=== PATIENT | male | born 1970 | race Two or more races ===

== ENCOUNTER 2017-01-22 14:41 | Emergency (ER) | payer OTHER ==
[~2017-01-22] VITALS: Ht 172.7 cm; Wt 86.2 kg
--- NOTE | 2017-01-22 16:31 | Emergency Room Report ---
History of Present Illness General Chief Complaint: Lower Back Pain or Injury Source: Patient Present Illness HPI The patient is a 46 old male presenting for back pain. He states that this is a work-related injury which occurred on 12/14. He states that he was lifting a heavy object and felt pain at the lower back. He was seen at another facility where imaging was done and unremarkable. He states that he was taking some pain medication which helped. He has now run out and pain has returned. It is 8/10 dull ache to the lower back. Does not radiate. Worse with bending over. He denies any other symptoms including nausea, vomiting, fever, chills, abdominal pain, numbness, tingling, urinary incontinence Allergies: Coded Allergies: No Known Allergies (Unverified , 01/22/17) Patient History Past Medical History: see triage record Pertinent Family History: none Reviewed Nursing Documentation: PMH: Agreed, PSxH: Agreed Nursing Documentation-PMH Hx Hypertension: Yes Review of Systems All Other Systems: negative except mentioned in HPI Physical Exam Vital Signs Date Time Temp Pulse Resp B/P (MAP) Pulse Ox O2 Delivery O2 Flow Rate FiO2 01/22/17 15:27 97.9 67 16 137/87 96 Room Air Sp02 EP Interpretation: reviewed, normal General Appearance: no apparent distress, alert, GCS 15, non-toxic Head: normocephalic, atraumatic Eyes: bilateral eye normal inspection, bilateral eye PERRL ENT: hearing grossly normal, normal pharynx, no angioedema, normal voice Neck: full range of motion, supple/symm/no masses Gastrointestinal: normal bowel sounds, non tender, soft, non-distended, no guarding, no rebound Genitourinary: normal inspection, no CVA tenderness Musculoskeletal: gait/station normal, normal range of motion, tender - bilat lumbar paraspinal muscles Neurologic: alert, oriented x3, responsive, motor strength/tone normal, sensory intact, speech normal Psychiatric: judgement/insight normal, memory normal, mood/affect normal, no suicidal/homicidal ideation Skin: normal color, no rash, warm/dry, well hydrated Medical Decision Making PA Attestation Dr. Jansen is my supervising physician. Patient management was discussed with my supervising physician Diagnostic Impression: Primary Impression: Muscle strain ER Course The patient is a 46 old male presenting for back pain. Ddx considered include but not limited to lumbar strain, degenerative disease, epidural abscess, cauda equina syndrome, chronic pain Physical exam: Afebrile. No apparent distress There is tenderness to palpation over bilateral lumbar paraspinal muscles. No midline tenderness or step-offs. Full active range of motion intact Normal gait The patient be discharged home with pain medication. He will followup with his primary doctor and workers compensation. He was told that MRI may be needed if pain continues or worsens Last Vital Signs Date Time Temp Pulse Resp B/P (MAP) Pulse Ox O2 Delivery O2 Flow Rate FiO2 01/22/17 15:27 97.9 67 16 137/87 96 Room Air Status: improved Disposition: HOME, SELF-CARE Condition: Improved Scripts Methocarbamol* (ROBAXIN-750*) 750 Mg Tablet 750 MG PO TID, #21 TAB 0 Refills Prov: RONALDO FRIAS.Alexa 01/22/17 Acetaminophen* (TYLENOL EXTRA STRENGTH*) 500 Mg Tablet 500 MG ORAL Q8H Y for Prn Headache/Temp > 101, #30 TAB 0 Refills Prov: RONALDO FRIAS 01/22/17 RONALDO FRIAS Jan 22, 2017 16:31
[2017-01-22] MEDS ORDERED: TYLENOL EXTRA500 MG ORAL (16:37)
[2017-01-22] MEDS ORDERED: ROBAXIN-750750 MG PO (16:37)
[2017-01-22 16:51] VITALS: BP 150/95
== END 2017-01-22 16:51 | disposition home or self-care (01) ==
LOC: EMR 15:15
DX: S39.012A Strain of muscle, fascia and tendon of lower back, initial encounter (principal); X50.0XXA Overexertion from strenuous movement or load, initial encounter; Y92.59 Other trade areas as the place of occurrence of the external cause; Y99.0 Civilian activity done for income or pay; I10 Essential (primary) hypertension
CPT/HCPCS: 99283

== ENCOUNTER 2017-04-21 07:40 | Day surgery (SDC) | payer OTHER ==
[2017-04-21] VITALS (8 sets, daily range): BP systolic 13–145; BP diastolic 90–99
[~2017-04-21] VITALS: Ht 172.7 cm; Wt 86.2 kg
[~2017-04-21 07:40] MED LIST: LR 1000ml 1,000 ML IVLG SCH; ROBAXIN-750750 MG PO; TYLENOL EXTRA500 MG ORAL
[2017-04-21] MEDS ORDERED: Propofol 200mg/20ml IV ONE (07:41)
[2017-04-21] MEDS ORDERED: LR 1000ml ONE (07:41)
[2017-04-21] MEDS ORDERED: Lidocaine 1% MPF 10mg/ml 5ml ONE (07:41)
[2017-04-21] MEDS ORDERED: Midazolam 2mg/2ml Inj ONE (07:41)
[2017-04-21] MEDS ORDERED: LR 1000ml 1,000 ML IVLG SCH (08:07)
[2017-04-21] MEDS ORDERED: oxyCODONE HCL/Acetaminophen 5/325mg ORAL PRN (08:15)
[2017-04-21] MEDS ORDERED: Hydromorphone 0.5mg/0.5ml inj IVP PRN (08:15)
[2017-04-21] MEDS ORDERED: Ketorolac 30mg Inj IV PRN ×2 (08:15)
[2017-04-21] MEDS ORDERED: Atropine Inj 1mg/10ml Syr IV PRN (08:15)
[2017-04-21] MEDS ORDERED: Midazolam 2mg/2ml Inj IVP PRN (08:15)
[2017-04-21] MEDS ORDERED: Labetalol 5mg/ml 20ml vial IV PRN (08:15)
[2017-04-21] MEDS ORDERED: LORazepam Inj 2mg/ml 1ml IV PRN (08:15)
[2017-04-21] MEDS ORDERED: DiphenhydrAMINE 50mg/ml Inj IVP PRN (08:15)
[2017-04-21] MEDS ORDERED: fentaNYL 100 mcg/2 mL IV PRN (08:15)
[2017-04-21] MEDS ORDERED: Norco 5mg/325mg tab ORAL PRN (08:15)
[2017-04-21] MEDS ORDERED: HYDROcodone/Acetamin 7.5/325 tab ORAL PRN (08:15)
[2017-04-21] MEDS ORDERED: MULTIVITAMINS1 EAC2 ORAL (08:20)
[2017-04-21] MEDS ORDERED: AMLODIPINE BESY10 MG ORAL (08:20)
--- NOTE | 2017-04-21 09:02 | Short Stay Surgery H&P ---
History of Present Illness History of Present Illness Chief Complaint Rectal bleeding and abdominal pains. YASMINE Richardson is a 46 year old male who was admitted on for Abdominal Pain/ rectal bleeding. Patient History Allergies: Coded Allergies: Crab (Verified Allergy, Severe, 04/21/17) hives PAST MEDICAL HISTORY: (1) Hypertension Past Surgeries: Social History: Medication History Scheduled Amlodipine Besylate* (Amlodipine Besylate*), 10 MG ORAL DAILY, (Reported) Multivitamins* (Multivitamins*), 1 TAB ORAL DAILY, (Reported) Discontinued Medications Acetaminophen* (Tylenol Extra Strength*), 500 MG ORAL Q8H PRN for Prn Headache/ Temp > 101 Discontinued Reason: Pt stopped taking med Methocarbamol* (Robaxin-750*), 750 MG PO TID Discontinued Reason: Pt stopped taking med Review of Systems Cardiovascular: Reports: no symptoms Respiratory: Reports: no symptoms Skeletal: Reports: no symptoms Gastrointestinal: Reports: other Genitourinary: Reports: no symptoms Neurologic: Reports: no symptoms Endocrine: Reports: no symptoms Hematologic: Reports: no symptoms Physical Exam Vital Signs Last Vital Signs Date Time Temp Pulse Resp B/P (MAP) Pulse Ox O2 Delivery O2 Flow Rate FiO2 04/21/17 08:27 98.2 72 18 145/99 98 Room Air 98.2 Skin: normal HENT: normal Heart: normal Lungs: normal Abdomen: normal Extremities: normal Genitourinary: normal Plan Plan of Care Colonoscopy Preop Interventions None. Summary of Findings See the reports Final Diagnosis: Attestation Are the patient's medical conditions optimized for surgery? Attestation Response: yes MARIA VICTORIA BERRY Apr 21, 2017 09:02
--- NOTE | 2017-04-21 09:03 | Pre-Procedure Note/Attestation ---
Pre-Procedure Note/Attestation Complete Prior to Procedure Planned Procedure: left Procedure Narrative: Examination of the lower GI tract via colonoscopy Indications for Procedure Pre-Operative Diagnosis: R/O hemorrhoids/polyps/tumors. Attestation I attest that I discussed the nature of the procedure; its benefits; risks and complications; and alternatives (and the risks and benefits of such alternatives ), prior to the procedure, with the patient (or the patient's legal contact representative). I attest that, if there was a reasonable possibility of needing a blood transfusion, the patient (or the patient's legal contact representative) was given the [facility] standardized written summary, pursuant to the [place] Blood Safety Act ([place] Health and Safety Code # 1645, as amended). I attest that I re-evaluated the patient just prior to the surgery and that there has been no change in the patient's H&P, except as documented below: KRISTI,SAID Apr 21, 2017 09:03
--- NOTE | 2017-04-21 09:14 | Immediate Post-Op Evaluation ---
Immediate Post-Op Evalulation Immediate Post-Op Evalulation Procedure: EGD Date of Evaluation: Apr 21, 2017 Time of Evaluation: 09:58 IV Fluids: 400 LR Blood Products: 0 Estimated Blood Loss: 2 Urinary Output: 0 Blood Pressure Systolic: 136 Blood Pressure Diastolic: 90 Pulse Rate: 80 Respiratory Rate: 16 O2 Sat by Pulse Oximetry: 99 Temperature (Fahrenheit): 98.2 Pain Score (1-10): 1 Nausea: No Vomiting: No Complications 0 Patient Status: awake, reacts, patent, none Hydration Status: adequate Anish Serrato MD Apr 21, 2017 09:14
--- NOTE | 2017-04-21 09:14 | Anethesia Preoperative Eval ---
Anesthesia Pre-op PMH/ROS General Date of Evaluation: Apr 21, 2017 Time of Evaluation: 09:12 Anesthesiologist: Ama ASA Score: ASA 3 Mallampati Score Class I : Soft palate, uvula, fauces, pillars visible Class II: Soft palate, uvula, fauces visible Class III: Soft palate, base of uvula visible Class IV: Only hard plate visible Mallampati Classification: Class II Surgeon: Jamari Diagnosis: GERD Surgical Procedure: Colonoscopy Anesthesia History: none Family History: no anesthesia problems Allergies: Coded Allergies: Crab (Verified Allergy, Severe, 04/21/17) hives Medications: see eMAR Past Medical History Cardiovascular: Reports: HTN Gastrointestinal/Genitourinary: Reports: GERD Musculoskeletal/Integumentary: Reports: other - LBP PSxH Narrative: Appendectomy Anesthesia Pre-op Phys. Exam Physician Exam Last Vital Signs Date Time Temp Pulse Resp B/P (MAP) Pulse Ox O2 Delivery O2 Flow Rate FiO2 04/21/17 08:27 98.2 72 18 145/99 98 Room Air 98.2 Constitutional: NAD Neurologic: CN 2-12 intact Cardiovascular: RRR Respiratory: CTA Gastrointestinal: S/NT/ND Airway Exam Mallampati Score: Class II MO: limited ROM: limited Teeth: missing, intact Anesthesia Pre-op A/P Risk Assessment & Plan Assessment: ASA 3 Plan: GA Status Change Before Surgery: Anish Blackman MD Apr 21, 2017 09:13
--- NOTE | 2017-04-21 09:45 | Endoscopy Procedure Note ---
Endoscopy Procedure Note General Indication for Procedure: Rectal bleeding Procedures Performed: EGD, colonoscopy - Highly redundant left colon. Minimal internal hemorrhoids noted that is considered the source of bleeding. 2 hyperplastic 2-3 mm size polypoid lesions seen in rectum at 20 Cm from anal opening that were removed by cold biopsy forceps, otherwise normal total colonoscopy. Specimen: yes Pt Tolerated Procedure Well: Yes Estimated Blood Loss: none Anesthesia Anesthesiologist: Dr. Pina Anesthesia: moderate sedation Medications Medication Given: see anesthesia record Inserted Devices Implant(s) used?: No Quality Quality of Bowel Preparation: Excellent Did scope reach the cecum?: Yes Was there any complications?: No GI Core Measures 50 yrs or older w/o bx or poly: No 10yrs. F/U not recommended: Yes 10 yrs. F/U needed: Yes Med reason:<3 yrs.: System Reason:<3 yrs.: Last colonoscopy >= to 3yrs: Yes MARIA VICTORIA BERRY Apr 21, 2017 09:45
--- NOTE | 2017-04-21 09:46 | Discharge Instructions ---
Discharge Instructions Discharge Instructions Follow up with: See thedoctor in office after two weeks. For Congestive Heart Failure Reminder Report to your physician any weight gain of 5 pounds or more in one week. MARIA VICTORIA BERRY Apr 21, 2017 09:46
--- NOTE | 2017-04-21 18:00 | Procedure Note ---
DATE OF PROCEDURE: 04/21/2017 PROCEDURE: Total colonoscopy with polypectomy. SURGEON: Jaquan Kauffman M.D. PREOPERATIVE DIAGNOSIS: Rectal bleeding. POSTOPERATIVE DIAGNOSES: 1. Minimal internal hemorrhoid. 2. Two hyperplastic diminutive 2 to 3 mm size polypoid lesions found in the rectum, which was removed with cold biopsy forceps. 3. Highly redundant left colon, otherwise, normal study up to the base of the cecum as examined. MEDICATIONS USED: Per Dr. Serrato, anesthesiologist. INSTRUMENT: GIF Olympus video colonoscope description. DESCRIPTION OF PROCEDURE: The patient after arriving endoscopy unit, was told about risks and benefits of the procedure, which he accepted and signed informed consent. At this time, he was put on the left lateral decubitus position. After adequate IV sedation, the scope was gently passed through the anal area, which revealed evidence of a small hemorrhoidal tag. A retroflexion maneuver, which was applied in the rectum, revealed evidence of minimal internal hemorrhoids, which were considered to be the source of the patient's occasional rectal bleeding. The rest of the rectum looked normal except an incidental finding of two small flat polypoid lesions of 2 to 3 mm size, 10 cm from the anal area, which were taken out by cold biopsy forceps and the specimen was sent to the pathology lab. At this point, the scope was gradually passed through the left colon, which was highly redundant and multiple maneuvers had to be done to straighten the colon to be able to pass through. Finally, the scope reached to the splenic flexure. From there, it was guided into the transverse colon, hepatic flexure and right colon all the way to the base of the cecum. All these areas remained to be completely normal. The colon cleanup was excellent. At this point, after reaching to the base of the cecum within 7 minutes, the scope was gradually pulled out and no other pathologies were found except what it is stated earlier. The patient tolerated the procedure well and left the endoscopy room in a good condition. Jaquan Kauffman M.D. DR: INDIRA JOB#: [id number] CC:
== END 2017-04-21 11:00 | disposition home or self-care (01) ==
LOC: GAS 07:40
DX: K64.8 Other hemorrhoids (principal); K63.5 Polyp of colon; I10 Essential (primary) hypertension; K21.9 Gastro-esophageal reflux disease without esophagitis; Z90.89 Acquired absence of other organs
CPT/HCPCS: 45380; J2250; J2704; J7120; 94003; 94150